=== PATIENT | female | born 1980 | race African-American/Black ===

== ENCOUNTER 2016-03-26 18:39 | Emergency (ER) | payer SELFPAY ==
[~2016-03-26] VITALS: Ht 160 cm; Wt 79.4 kg
[2016-03-26 19:40] VITALS: BP 140/90
[2016-03-26] MEDS ORDERED: HYDROCODONE/APAP 5/325MG TABLET. PO ONE (20:15)
[2016-03-26] MEDS ORDERED: CYCLOBENZAPRINE 10 MG TABLET. PO ONE (20:15)
[2016-03-26] MEDS ORDERED: CYCL10TA2 PO (20:25)
[2016-03-26] MEDS ORDERED: HYDR-971 PO (20:25)
--- NOTE | 2016-03-26 20:25 | PHYS DOC ---
Past Medical History Past Medical History: Hypertension, Seizure Additional Past Medical Histor: FX L3, HERNIATED DISCS Past Surgical History: No Surgical History, Alcohol Use: None Drug Use: None Adult General Chief Complaint Chief Complaint: LOWER EXT PAIN HPI HPI Patient is a 35 year old female with history of remote right low back pain who presents today with 8 out of 10 sharp right low back pain radiating into the right lower extremity that began 6 days ago. Patient is also complaining of some numbness and tingling to the right toes. Patient denies any injury. Denies any loss of bowel bladder function. Review of Systems Review of Systems Constitutional: Denies fever or chills [] Eyes: Denies change in visual acuity, redness, or eye pain [] GI: Denies abdominal pain, nausea, vomiting, bloody stools or diarrhea [] : Denies dysuria or hematuria [] Musculoskeletal: Right low back pain radiating to the right lower extremity Integument: Denies rash or skin lesions [] Neurologic: Denies headache, focal weakness or sensory changes [] Endocrine: Denies polyuria or polydipsia [] Current Medications Current Medications Current Medications Medications (Trade) Dose Ordered Sig/Venu Start Time Stop Time Status Last Admin Dose Admin Acetaminophen/ Hydrocodone Bitart (Lortab 5/325) 1 tab 1X ONCE 03/26/16 20:15 03/26/16 20:16 DC 03/26/16 20:15 1 TAB Cyclobenzaprine HCl (Flexeril) 10 mg 1X ONCE 03/26/16 20:15 03/26/16 20:16 DC 03/26/16 20:15 10 MG Allergies Allergies Allergies Coded Allergies Type Severity Reaction Last Updated Verified ibuprofen Allergy Intermediate RASH 07/31/14 Yes Physical Exam Physical Exam Constitutional: Well developed, well nourished, no acute distress, non-toxic appearance. [] Abdomen: Bowel sounds normal, soft, no tenderness, no masses, no pulsatile masses. [] Skin: Warm, dry, no erythema, no rash. [] Back: Diffuse tenderness to paraspinal muscles of the right lumbar region worse on the right SI joint, no midline tenderness, no CVA tenderness. Positive right leg straight raises. Extremities: No tenderness, no cyanosis, no clubbing, ROM intact, no edema. [] Neurologic: Alert and oriented X 3, normal motor function, normal sensory function, no focal deficits noted. [] Psychologic: Affect normal, judgement normal, mood normal. [] Current Patient Data Vital Signs Vital Signs Date Time Temp Pulse Resp B/P Pulse Ox O2 Delivery O2 Flow Rate FiO2 03/26/16 19:40 98.1 85 18 100 Room Air 98.1 EKG EKG [] Radiology/Procedures Radiology/Procedures [] Course & Med Decision Making Course & Med Decision Making Pertinent Labs and Imaging studies reviewed. (See chart for details) Patient is in the ED with sciatica pain. Discharged with Flexeril, and hydrocodone. Instructed to follow-up with her own PCP in one week. She is allergic to ibuprofen. She was provided return precautions and discharged in stable condition. Dragon Disclaimer Dragon Disclaimer This electronic medical record was generated, in whole or in part, using a voice recognition dictation system. Departure Departure Impression: Primary Impression: Chronic back pain Additional Impression: Sciatic nerve pain Disposition: HOME, SELF-CARE Condition: STABLE Referrals: NO PCP (PCP) Follow-up with your own doctor in a week Patient Instructions: Back Pain, Adult, Sciatica Additional Instructions: You were seen for sciatic pain, back pain. You can apply heat to your back. Follow-up with your own doctor in one week. Come back to the emergency room for concerning symptoms especially loss of bowel bladder function. Take the prescribed medicines as ordered. Scripts Hydrocodone/Apap 5-325 ([place] 5-325 Tablet)1 Each Tablet1-2 Tab PO Q4-6HRS #12 TAB Prov:PASHA DIGGS APRN 03/26/16 Cyclobenzaprine Hcl 10 Mg Tablet1 Tab PO TID #30 TAB Prov:PASHA DIGGS APRN 03/26/16 Problem Qualifiers Primary Impression: Chronic back pain Back pain location: low back pain Back pain laterality: right Sciatica presence: with sciatica Sciatica laterality: sciatica of right side Qualified Code: M54.41 - Lumbago with sciatica, right side Additional Impression: Sciatic nerve pain Laterality: right Qualified Code: M54.31 - Sciatica, right side PASHA DIGGS APRN Mar 26, 2016 20:25
== END 2016-03-26 20:28 | disposition home or self-care (01) ==
LOC: ER 18:39
DX: M54.41 Lumbago with sciatica, right side (principal); G89.29 Other chronic pain; I10 Essential (primary) hypertension; Z88.6 Allergy status to analgesic agent
CPT/HCPCS: 99283

== ENCOUNTER 2016-05-27 10:12 | Emergency (ER) | payer SELFPAY ==
[~2016-05-27] VITALS: Ht 160 cm; Wt 93.0 kg
[~2016-05-27 10:12] MED LIST: CYCL10TA2 PO; HYDR-971 PO
[2016-05-27 10:36] VITALS: BP 148/90
[2016-05-27 11:06] LABS: BILIRUBIN,URINE NEGATIVE (NEG); GLUCOSE,URINE NEGATIVE (NEG); NITRITE,URINE NEGATIVE (NEG); PROTEIN,URINE NEGATIVE (NEG-TRACE); UROBILINOGEN,URINE 0.2 mg/dL (0.2 mg/dL)
[2016-05-27 11:23] LABS: BACTERIA,URINE FEW /HPF (0-FEW); SQUAMOUS EPITHELIAL CELL,UR FEW /LPF
[2016-05-27] MEDS ORDERED: CEFTRIAXONE IM 250 MG VIAL. IM ONE (12:00)
[2016-05-27] MEDS ORDERED: AZITHROMYCIN 250 MG TABLET. PO ONE (12:00)
[2016-05-27] MEDS ORDERED: METRONIDAZOLE 500 MG TABLET. PO ONE (12:00)
--- NOTE | 2016-05-27 12:07 | PHYS DOC ---
Past Medical History Past Medical History: Hypertension, Seizure Additional Past Medical Histor: FX L3, HERNIATED DISCS Past Surgical History: No Surgical History, Additional Information: 1 ppd Alcohol Use: Occasionally Drug Use: None Adult General Chief Complaint Chief Complaint: PAIN ON URINATION HPI HPI Patient is a 36 year old female with history of hypertension and seizure disorder who presents today with dysuria urgency frequency that began 5 days ago. Patient denies any chance she is . Denies any hematuria. Denies any abdominal pain nausea or vomiting. Review of Systems Review of Systems Constitutional: Denies fever or chills [] Eyes: Denies change in visual acuity, redness, or eye pain [] HENT: Denies nasal congestion or sore throat [] Respiratory: Denies cough or shortness of breath [] Cardiovascular: No additional information not addressed in HPI [] GI: Denies abdominal pain, nausea, vomiting, bloody stools or diarrhea [] : Urgency frequency dysuria Musculoskeletal: Denies back pain or joint pain [] Integument: Denies rash or skin lesions [] Neurologic: Denies headache, focal weakness or sensory changes [] Endocrine: Denies polyuria or polydipsia [] Current Medications Current Medications Current Medications Medications (Trade) Dose Ordered Sig/Venu Start Time Stop Time Status Last Admin Dose Admin Azithromycin (Zithromax) 1,000 mg 1X ONCE 05/27/16 12:00 05/27/16 12:01 DC 05/27/16 12:02 1,000 MG Ceftriaxone Sodium (Rocephin Im) 250 mg 1X ONCE 05/27/16 12:00 05/27/16 12:01 DC 05/27/16 12:02 250 MG Metronidazole (Flagyl) 2,000 mg 1X ONCE 05/27/16 12:00 05/27/16 12:01 DC 05/27/16 12:02 2,000 MG Allergies Allergies Allergies Coded Allergies Type Severity Reaction Last Updated Verified Fish Containing Products Allergy Intermediate anaphylaxis 05/27/16 Yes ibuprofen Allergy Intermediate RASH 05/27/16 Yes shellfish derived Allergy Intermediate anaphylaxis 05/27/16 Yes Physical Exam Physical Exam Constitutional: Well developed, well nourished, no acute distress, non-toxic appearance. [] HENT: Normocephalic, atraumatic, bilateral external ears normal, oropharynx moist, no oral exudates, nose normal. [] Eyes: PERRLA, EOMI, conjunctiva normal, no discharge. [] Neck: Normal range of motion, no tenderness, supple, no stridor. [] Cardiovascular:Heart rate regular rhythm, no murmur [] Lungs & Thorax: Bilateral breath sounds clear to auscultation [] Abdomen: Bowel sounds normal, soft, no tenderness, no masses, no pulsatile masses. [] Skin: Warm, dry, no erythema, no rash. [] Back: No tenderness, no CVA tenderness. [] Extremities: No tenderness, no cyanosis, no clubbing, ROM intact, no edema. [] Neurologic: Alert and oriented X 3, normal motor function, normal sensory function, no focal deficits noted. [] Psychologic: Affect normal, judgement normal, mood normal. [] Current Patient Data Vital Signs Vital Signs Date Time Temp Pulse Resp B/P Pulse Ox O2 Delivery O2 Flow Rate FiO2 05/27/16 10:36 98.8 94 20 99 Room Air 98.8 Lab Values Laboratory Tests Test 05/27/16 10:25 Urine Collection Type Unknown Urine Color Yellow Urine Clarity Clear Urine pH 8.0 Urine Specific [place] 1.010 Urine Protein Negativemg/dL (NEG-TRACE) Urine Glucose (UA) Negativemg/dL (NEG) Urine Ketones (Stick) Negativemg/dL (NEG) Urine Blood Moderate (NEG) Urine Nitrite Negative (NEG) Urine Bilirubin Negative (NEG) Urine Urobilinogen Dipstick 0.2mg/dL (0.2 mg/dL) Urine Leukocyte Esterase Trace (NEG) Urine RBC 1-2/HPF (0-2) Urine WBC 1-4/HPF (0-4) Urine Squamous Epithelial Cells Few/LPF Urine Bacteria Few/HPF (0-FEW) EKG EKG [] Radiology/Procedures Radiology/Procedures [] Course & Med Decision Making Course & Med Decision Making Pertinent Labs and Imaging studies reviewed. (See chart for details) Patient is in the ED with complaints of dysuria urgency or frequency. Negative urine hCG, urine analysis has trace amount of leukocytes, and few bacteria. Gave patient results, she states she just got a text message from the boyfriend who stated he was treated for chlamydia, patient is requesting to be treated as well. Patient is given Flagyl Rocephin and azithromycin. Educated on safe sex practices. Discharged in stable condition. Dragon Disclaimer Dragon Disclaimer This electronic medical record was generated, in whole or in part, using a voice recognition dictation system. Departure Departure Impression: Primary Impression: Concern about STD in female without diagnosis Disposition: 01 HOME, SELF-CARE Condition: STABLE Referrals: NO PCP (PCP) Follow-up with the health department for further STD concerns Patient Instructions: Sexually Transmitted Diseases-SportsMed Additional Instructions: You were treated prophylaxis for STDs. Do not have sex for week, contact all your sex partners, let them know you were treated for STDs and ask them to seek treatment too. Use protection at all times. PASHA DIGGS APRN May 27, 2016 12:07
== END 2016-05-27 12:18 | disposition home or self-care (01) ==
LOC: ER 10:12
DX: Z20.2 Contact with and (suspected) exposure to infections with a predominantly sexual mode of transmission (principal); R30.0 Dysuria; R35.0 Frequency of micturition; R39.15 Urgency of urination; I10 Essential (primary) hypertension; F17.200 Nicotine dependence, unspecified, uncomplicated; Z98.890 Other specified postprocedural states; Z88.6 Allergy status to analgesic agent; Z91.013 Allergy to seafood
CPT/HCPCS: 81001; 84703; 87491; 87591; 96372; 99284; J0696; Q0144; 81025

== ENCOUNTER 2016-09-20 12:01 | Emergency (ER) | payer OTHER ==
[2016-09-20 12:32] LABS: BILIRUBIN,URINE NEGATIVE (NEG); GLUCOSE,URINE NEGATIVE (NEG); NITRITE,URINE NEGATIVE (NEG); PROTEIN,URINE NEGATIVE (NEG-TRACE); UROBILINOGEN,URINE 0.2 mg/dL (0.2 mg/dL)
[2016-09-20 12:41] LABS: BACTERIA,URINE MODERATE /HPF (0-FEW); RBC,URINE 20-40 /HPF (0-2)
[2016-09-20 12:42] LABS: SQUAMOUS EPITHELIAL CELL,UR MOD /LPF
[2016-09-20 12:48] LABS: BASO % 0 % (0-3); EOS % 1 % (0-3); HEMATOCRIT 38.5 % (36.0-47.0); HEMOGLOBIN 12.7 g/dL (12.0-15.5); LYMPH # 2.2 x10^3/uL (1.0-4.8); LYMPH % 27 % (24-48); MEAN CORPUSCULAR HEMOGLOBIN 27 pg (25-35); MEAN CORPUSCULAR HGB CONC 33 g/dL (31-37); MEAN CORPUSCULAR VOLUME 81 fL (79-100); MONO % 7 % (0-9); NEUT % 66 % (31-73); PLATELET COUNT 247 x10^3/uL (140-400); RED BLOOD COUNT 4.77 x10^6/uL (3.50-5.40); RED CELL DISTRIBUTION WIDTH 15.2 % (11.5-14.5); WHITE BLOOD COUNT 8.5 x10^3/uL (4.0-11.0)
--- NOTE | 2016-09-20 14:17 | RAD ---
OB ultrasound less than 14 weeks to include transabdominal and transvaginal imaging 09/20/2016 Clinical history: First trimester with vaginal bleeding. Technique: Using the distended urinary bladder as a sonographic window, real-time ultrasound examination of the pelvis was performed. Additionally in attempt to better evaluate the uterus and adnexa, a transvaginal ultrasound study was performed. Multiple images were obtained. Findings: The uterus is within normal limits in size and echogenicity. It measures 7.3 x 5.2 x 3.5 cm in longitudinal, transverse, and AP dimensions. The endometrial echo complex measures 2 mm in thickness which is within normal limits. No gestational sac is seen within the uterus. Both ovaries are within normal limits in size and echogenicity. The right ovary measures 3.3 x 1.8 x 2.1 cm in size. The left ovary measures 2.9 x 1.6 x 2.0 cm in size. Within the right adnexa, medial and inferior to the right ovary, a complex mass is seen which measures 4.0 x 3.1 x 2.6 cm in size. This has an anechoic structure within it which measures 2.8 cm in size. This could represent a gestational sac associated with ectopic within the right adnexa. No yolk sac or embryonic pole is seen to confirm this finding, however. No free fluid is seen. Impression: 1. No IUP is seen. 2. 4 cm complex mass is seen within the right adnexa concerning for an ectopic . Clinical correlation is recommended.
--- NOTE | 2016-09-20 14:22 | PHYS DOC ---
Past Medical History Past Medical History: Hypertension, Seizure, Other Additional Past Medical Histor: FX L3, HERNIATED DISCS Past Surgical History: Additional Information: quit 1 month ago Alcohol Use: Occasionally Drug Use: None Adult General Chief Complaint Chief Complaint: VAGINAL BLEEDING HPI HPI Patient is a 36 year old G3, P1, Ab1 female with estimated gestation 7 weeks patient and history of ectopic presents with spotting starting this morning. Last menstrual period was July 14, positive press C test was August 26. Patient denies pelvic pain, cramping, dizziness, lightheadedness, chest pain, shortness of breath palpitations. Patient denies spotting episode after intercourse. No vaginal discharge or pain. No other acute symptoms or complaints. Review of Systems Review of Systems Review of symptoms as per history of present illness. All other review symptoms are negative. Allergies Allergies Allergies Coded Allergies Type Severity Reaction Last Updated Verified Fish Containing Products Allergy Intermediate anaphylaxis 05/27/16 Yes ibuprofen Allergy Intermediate RASH 05/27/16 Yes shellfish derived Allergy Intermediate anaphylaxis 05/27/16 Yes Physical Exam Physical Exam Constitutional: Well developed, well nourished, no acute distress, non-toxic appearance. [] HENT: Normocephalic, atraumatic, bilateral external ears normal, oropharynx moist, no oral exudates, nose normal. [] Eyes: PERRLA, EOMI, conjunctiva normal, no discharge. [] Neck: Normal range of motion, no tenderness, supple, no stridor. [] Cardiovascular:Heart rate regular rhythm, no murmur [] Lungs & Thorax: Bilateral breath sounds clear to auscultation [] Abdomen: Bowel sounds normal, soft, no tenderness, no masses, no pulsatile masses. [] : Sternal genitalia normal, no vaginal lesions or lacerations, cervical os is closed with scant dark blood in vault. No TTP. Back: No tenderness, no CVA tenderness. [] Extremities: No tenderness, no cyanosis, no clubbing, ROM intact, no edema. [] Neurologic: Alert and oriented X 3, normal motor function, normal sensory function, no focal deficits noted. [] Psychologic: Affect normal, judgement normal, mood normal. [] Current Patient Data Vital Signs Vital Signs Date Time Temp Pulse Resp B/P (MAP) Pulse Ox O2 Delivery O2 Flow Rate FiO2 09/20/16 14:27 92 131/83 (99) 97 Room Air 09/20/16 12:21 98.5 16 98.5 Lab Values Laboratory Tests Test 09/20/16 11:21 09/20/16 12:10 09/20/16 12:30 POC Urine HCG, Qualitative Hcg positive (Negative) Urine Collection Type Void Urine Color Yellow Urine Clarity Cloudy Urine pH 6.0 Urine Specific [place] 1.020 Urine Protein Negative mg/dL (NEG-TRACE) Urine Glucose (UA) Negative mg/dL (NEG) Urine Ketones (Stick) Negative mg/dL (NEG) Urine Blood Large (NEG) Urine Nitrite Negative (NEG) Urine Bilirubin Negative (NEG) Urine Urobilinogen Dipstick 0.2 mg/dL (0.2 mg/dL) Urine Leukocyte Esterase Moderate (NEG) Urine RBC 20-40 /HPF (0-2) Urine WBC 1-4 /HPF (0-4) Urine Squamous Epithelial Cells Mod /LPF Urine Bacteria Moderate /HPF (0-FEW) Urine Mucus Slight /LPF White Blood Count 8.5 x10^3/uL (4.0-11.0) Red Blood Count 4.77 x10^6/uL (3.50-5.40) Hemoglobin 12.7 g/dL (12.0-15.5) Hematocrit 38.5 % (36.0-47.0) Mean Corpuscular Volume 81 fL (79-100) Mean Corpuscular Hemoglobin 27 pg (25-35) Mean Corpuscular Hemoglobin Concent 33 g/dL (31-37) Red Cell Distribution Width 15.2 % (11.5-14.5) H Platelet Count 247 x10^3/uL (140-400) Neutrophils (%) (Auto) 66 % (31-73) Lymphocytes (%) (Auto) 27 % (24-48) Monocytes (%) (Auto) 7 % (0-9) Eosinophils (%) (Auto) 1 % (0-3) Basophils (%) (Auto) 0 % (0-3) Neutrophils # (Auto) 5.6 x10^3uL (1.8-7.7) Lymphocytes # (Auto) 2.2 x10^3/uL (1.0-4.8) Monocytes # (Auto) 0.6 x10^3/uL (0.0-1.1) Eosinophils # (Auto) 0.1 x10^3/uL (0.0-0.7) Basophils # (Auto) 0.0 x10^3/uL (0.0-0.2) Maternal Serum HCG Beta Subunit 96 mIU/mL (0-5) H Laboratory Tests 09/20/16 12:30 EKG EKG [] Radiology/Procedures Radiology/Procedures [OB ultrasound less than 14 weeks: No IUP, 4 cm complex mass seen within the right adnexal concern for ectopic per radiology report.] Course & Med Decision Making Course & Med Decision Making Pertinent Labs and Imaging studies reviewed. (See chart for details) [Patients hCG Quant is 96. Suspect miscarriage versus ectopic versus early . OB ultrasound reveals no IUP with, and right complex adnexal mass with possible ectopic . No free fluid in cul-de-sac her pelvis is identified. Case reviewed with Dr. Rodriguez test automation architect for [facility] [facility]. Dr. Caldwell states he believes the complex mass may represent residual corpus luteal cyst or ectopic. Given that the patient does not have any pain and has only minimal bleeding in the emergency department he recommends that the patient be sent home with receipt hCG Quant testing in 2 days with follow-up ultrasound in [address] Caldwell to see in the office in 4 days. I discussed with patient at length the possibility of early, versus missed AB versus ectopic . Patient's very familiar with the diagnosis of ectopic as she has previously been treated for this condition. She understands evidence of medical emergency and that she developed increased pain , bleeding or other concerning symptoms she should return to the ED department immediately. She discharged in good condition.] Dragon Disclaimer Dragon Disclaimer This electronic medical record was generated, in whole or in part, using a voice recognition dictation system. Departure Departure Impression: Primary Impression: Vaginal bleeding during , antepartum Additional Impression: Ectopic Disposition: HOME, SELF-CARE Condition: Referrals: JULIO CALDWELL Jr, MD Patient Instructions: Ectopic , [id number], Vaginal Bleeding During , First Trimester Additional Instructions: You were evaluated for vaginal bleeding in early . Lab work and ultrasound were performed. Visible intrauterine was not identified. Your symptoms and doesn't sensation are consistent with early , possible miscarriage or possible ectopic . Please follow-up with Dr. Caldwell in the office in 4 days. Call his office on Thursday to schedule follow-up appointment in obtain repeat lab work prior to appointment. Elissa take platform to outpatient lab on Thursday or Thursday of next week. In the meantime, if you develop increased vaginal bleeding, pelvic pain, dizziness, chest pain or shortness of breath, return to the emergency department immediately reevaluation of possible ectopic . Problem Qualifiers ADDIE HARDY DO Sep 20, 2016 14:22
[2016-09-20 14:50] VITALS: BP 122/77
== END 2016-09-20 15:26 | disposition home or self-care (01) ==
LOC: ER 12:01
DX: O00.90 Unspecified ectopic pregnancy without intrauterine pregnancy (principal); O46.91 Antepartum hemorrhage, unspecified, first trimester; Z3A.01 Less than 8 weeks gestation of pregnancy; O16.1 Unspecified maternal hypertension, first trimester; Z87.891 Personal history of nicotine dependence; Z91.013 Allergy to seafood; Z88.8 Allergy status to other drugs, medicaments and biological substances
CPT/HCPCS: 36415; 76801; 76817; 81001; 81025; 84702; 85025; 86901; 87086; 99285-25

== ENCOUNTER 2016-10-12 10:51 | Emergency (ER) | payer OTHER ==
[~2016-10-12] VITALS: Ht 160 cm; Wt 90.7 kg
[2016-10-12] MEDS ORDERED: IV NORMAL SALINE 1000ML BAG 1,000 ML IV SCH (11:09)
[2016-10-12] MEDS ORDERED: diphenhydrAMINE 50 MG/ML VIAL IVP ONE (11:15)
[2016-10-12] MEDS ORDERED: methylPREDNISolone SOD SUCC PF 125 MG/2 ML VIAL. IV ONE (11:15)
[2016-10-12] MEDS ORDERED: 0.9 % SODIUM CHLORIDE 10 ML DISP.SYRIN. IV PRN (11:15)
[2016-10-12] MEDS ORDERED: FAMOTIDINE 20 MG/2 ML VIAL IVP ONE (11:15)
--- NOTE | 2016-10-12 11:27 | PHYS DOC ---
Past Medical History Past Medical History: Hypertension, Seizure, Other Additional Past Medical Histor: FX L3, HERNIATED DISCS Past Surgical History: Alcohol Use: Occasionally Drug Use: None Adult General Chief Complaint Chief Complaint: ABDOMINAL PAIN HPI HPI Patient is a pleasant 36 year old female at approximate 11 weeks by LMP as reported by her history. She presents with 2 to hours of suprapubic discomfort described as a crampy ache dull pressure without vaginal bleeding, UTI symptoms, nausea, vomiting or diarrhea. Patient denies any discharge from her vagina history of STDs or other trauma. 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 She denies any fevers, chills or other URI symptoms. Patient does admit she's had a slight rash on her upper extremities as been intensely for last 2 days. She denies any joint pain joint swelling. Review of Systems Review of Systems Constitutional: Denies fever or chills [] Eyes: Denies change in visual acuity, redness, or eye pain [] HENT: Denies nasal congestion or sore throat [] Respiratory: Denies cough or shortness of breath [] Cardiovascular: No additional information not addressed in HPI [] GI: abd pain, no n/v/d, non bloody : Denies dysuria or hematuria [] Musculoskeletal: Denies back pain or joint pain [] Integument: Does have an itchy skin rash on her upper extremity's bilaterally Neurologic: Denies headache, focal weakness or sensory changes [] Endocrine: Denies polyuria or polydipsia [] Current Medications Current Medications Current Medications Medications (Trade) Dose Ordered Sig/Venu Start Time Stop Time Status Last Admin Dose Admin Diphenhydramine HCl (Benadryl) 25 mg 1X ONCE 10/12/16 11:15 10/12/16 11:18 DC 10/12/16 11:46 25 MG Famotidine (Pepcid) 20 mg 1X ONCE 10/12/16 11:15 10/12/16 11:18 DC 10/12/16 11:43 20 MG Methylprednisolone Sodium Succinate (SOLU-Medrol 125MG VIAL) 125 mg 1X ONCE 10/12/16 11:15 10/12/16 11:18 DC 10/12/16 11:49 125 MG Sodium Chloride (Normal Saline Flush) 10 ml QSHIFT PRN 10/12/16 11:15 10/12/16 11:48 10 ML Allergies Allergies Allergies Coded Allergies Type Severity Reaction Last Updated Verified Fish Containing Products Allergy Intermediate anaphylaxis 05/27/16 Yes ibuprofen Allergy Intermediate RASH 05/27/16 Yes shellfish derived Allergy Intermediate anaphylaxis 05/27/16 Yes Physical Exam Physical Exam Vital signs reviewed within normal limits Constitutional: Well developed, well nourished, no acute distress, non-toxic appearance. [] HENT: Normocephalic, atraumatic, bilateral external ears normal, oropharynx moist, no oral exudates, nose normal. [] Cardiovascular:Heart rate regular rhythm, no murmur [] Lungs & Thorax: Bilateral breath sounds clear to auscultation [] Abdomen: Bowel sounds normal, soft, no masses, no pulsatile masses, mild suprapubic tenderness no guarding rebound or organomegaly[] Skin: Warm, dry, no erythema, no rash. [] Back: No tenderness, no CVA tenderness. [] Extremities: No tenderness, no cyanosis, no clubbing, ROM intact, no edema. [] Neurologic: Alert and oriented X 3, normal motor function, normal sensory function, no focal deficits noted. [] Psychologic: Affect normal, judgement normal, mood normal. [] Current Patient Data Vital Signs Vital Signs Date Time Temp Pulse Resp B/P (MAP) Pulse Ox O2 Delivery O2 Flow Rate FiO2 10/12/16 11:03 98.8 89 18 149/89 (109) 99 Room Air 98.8 Lab Values Laboratory Tests Test 10/12/16 10:10 10/12/16 10:54 10/12/16 11:50 POC Urine HCG, Qualitative Hcg positive (Negative) Urine Collection Type Void Urine Color Yellow Urine Clarity Hazy Urine pH 7.0 Urine Specific [place] 1.015 Urine Protein Negative mg/dL (NEG-TRACE) Urine Glucose (UA) Negative mg/dL (NEG) Urine Ketones (Stick) Negative mg/dL (NEG) Urine Blood Small (NEG) Urine Nitrite Negative (NEG) Urine Bilirubin Negative (NEG) Urine Urobilinogen Dipstick 0.2 mg/dL (0.2 mg/dL) Urine Leukocyte Esterase Negative (NEG) Urine RBC 1-2 /HPF (0-2) Urine WBC 1-4 /HPF (0-4) Urine Squamous Epithelial Cells Many /LPF Urine Bacteria Moderate /HPF (0-FEW) Urine Mucus Slight /LPF White Blood Count 10.6 x10^3/uL (4.0-11.0) Red Blood Count 4.69 x10^6/uL (3.50-5.40) Hemoglobin 12.4 g/dL (12.0-15.5) Hematocrit 37.5 % (36.0-47.0) Mean Corpuscular Volume 80 fL (79-100) Mean Corpuscular Hemoglobin 26 pg (25-35) Mean Corpuscular Hemoglobin Concent 33 g/dL (31-37) Red Cell Distribution Width 14.9 % (11.5-14.5) H Platelet Count 252 x10^3/uL (140-400) Neutrophils (%) (Auto) 74 % (31-73) H Lymphocytes (%) (Auto) 20 % (24-48) L Monocytes (%) (Auto) 5 % (0-9) Eosinophils (%) (Auto) 0 % (0-3) Basophils (%) (Auto) 1 % (0-3) Neutrophils # (Auto) 7.8 x10^3uL (1.8-7.7) H Lymphocytes # (Auto) 2.1 x10^3/uL (1.0-4.8) Monocytes # (Auto) 0.6 x10^3/uL (0.0-1.1) Eosinophils # (Auto) 0.0 x10^3/uL (0.0-0.7) Basophils # (Auto) 0.0 x10^3/uL (0.0-0.2) Maternal Serum HCG Beta Subunit 52 mIU/mL (0-5) H Sodium Level 139 mmol/L (136-145) Potassium Level 3.7 mmol/L (3.5-5.1) Chloride Level 103 mmol/L (98-107) Carbon Dioxide Level 28 mmol/L (21-32) Anion Gap 8 (6-14) Blood Urea Nitrogen 8 mg/dL (7-20) Creatinine 0.8 mg/dL (0.6-1.0) Estimated GFR (Cockcroft-Gault) 97.7 BUN/Creatinine Ratio 10 (6-20) Glucose Level 87 mg/dL (70-99) Calcium Level 8.8 mg/dL (8.5-10.1) Total Bilirubin 0.5 mg/dL (0.2-1.0) Aspartate Amino Transferase (AST) 16 U/L (15-37) Alanine Aminotransferase (ALT) 19 U/L (14-59) Alkaline Phosphatase 85 U/L (46-116) Total Protein 6.9 g/dL (6.4-8.2) Albumin 3.4 g/dL (3.4-5.0) Albumin/Globulin Ratio 1.0 (1.0-1.7) Lipase 62 U/L (73-393) L Laboratory Tests 10/12/16 11:50 Laboratory Tests 10/12/16 11:50 EKG EKG [] Radiology/Procedures Radiology/Procedures [] [facility] [address] [place] [address] IMAGING REPORT Signed PATIENT: RADHA YOON ACCOUNT: [id number] : 1980 LOCATION: ER AGE: 36 SEX: F EXAM STATUS: REG ER ORD. PHYSICIAN: YADIEL ALMEIDA MD REASON: pelvic pain PROCEDURE: OB <14 WKS W/TV Examination: Obstetrical ultrasound less than 14 weeks History: History of abdominal pain, cramping, ectopic Comparison: 09/20/2016. Findings: The uterus measures 7.8 x 5.0 x 3.3 cm Simple appearing fluid identified in the cul-de-sac. The right ovary measures 2.8 x 2.6 x 2.1 cm. The left ovary measures 4.4 x 3.7 x 3.2 cm. There is a cystic structure identified in the left ovary measuring 3.3 x 3.5 x 3.1 cm. Intrauterine gestational sac is not identified. In the right adnexa , there is a complex appearing mass identified measuring 2.9 x 3.3 x 3.1 cm with central anechoic structure. This may represent a gestational sac without yolk sac or pole within. The camilo of the central cystic structure appear more collapsed compared to prior exam. Impression: 1. No intrauterine gestation is identified. 2. There is a 3.3 cm complex cystic structure identified in the right adnexa concerning for ectopic without obvious pole or yolk sac within. The camilo of the central cystic structure appear more collapsed compared to prior exam. Correlate with quantitative beta-hCG levels. 3. Small free fluid identified in the cul-de-sac. 4. 3.5 cm cystic structure identified in the left ovary likely a cyst. DICTATED and SIGNED BY: DWAIN NICHOLS MD DATE: 10/12/16 1246 CC: YADIEL ALMEIDA MD; NO PCP ~ Course & Med Decision Making Course & Med Decision Making Pertinent Labs and Imaging studies reviewed. (See chart for details) she labs are all within normal limits to include a beta hCG Quant 52 depending on what ultrasound looks like this could still be an ectopic . Patient tells me that their symptoms given during CC are improved. We reviewed labs at this point waiting or some results. A she is initial Quant from July 21, 2016 was 96 today her Quant is 54. Luis on the ultrasound findings this is very concerning for possible ectopic that is involuting and needs to be removed. [] Core Sucker note: An SUPERVISOR [employer] on service Dr. Plummer approximate 1 PM Core Sucker called at of the service 1:02 PM Consult called back at Discussed the case I presented and they agreed with admission. Time of acceptance 1:02 PM. Patient will be kept nothing by mouth provided fluids antiemetics we will type and screen this patient for possible need of blood increases ectopic ruptures in the OR. We informed of this finding and the plan to admit her to the hospital for definitive treatment of this particular ectopic . Dr. PLUMMER called back about 110 PM and related her ultra sound results that she could possibly be a candidate for methotrexate. He was willing to come in and talked about possible treatment options. Time is now 1:[address] krueger physician is at the bedside by 1:20 PM he discussed with the patient the treatment for methotrexate and reasons to do so. Patient is clinical presentation and his x-ray with methotrexate given her ectopic on ultrasound he believes she is improving candidate. We dosed 50 mg/ mcg squared of methotrexate ordered IM with a follow-up in 4 days in his office for repeat quantitative hCG and repeat again on day 7. Patient will be given pain medications bleeding precautions and antiemetics. And follow-up as appropriate. Dragon Disclaimer Dragon Disclaimer This electronic medical record was generated, in whole or in part, using a voice recognition dictation system. Departure Departure Impression: Primary Impression: Ectopic Additional Impression: Abdominal pain affecting Disposition: 01 HOME, SELF-CARE Condition: IMPROVED Referrals: NO PCP (PCP) ELLYN PLUMMER MD Patient Instructions: Abdominal Pain During , Threatened Miscarriage Additional Instructions: My discharge plan Please follow-up with Dr. PLUMMER as scheduled in 4 days in his office. Based on the fact that he wore on a medication that can cause increased bleeding and pain please return for any increasing pain or bleeding greater than 1 pad per hour for 8 hours or if you have any lightheaded or dizziness with symptoms. Also return immediately. Bowel pain increases with abdominal distention. Follow up: In addition patient is asked to followup with their primary doctor, within a week for followup examination and to address patient's ongoing medical conditions. Because patient does not have a regular medical doctor, a local physician Resource Sheet will be provided to establish care primary care. Patient is advised that in the Emergency Department primary complaints are addressed and only in light of known signs and symptoms. Patient should return immediately to the emergency department if new signs and symptoms develop or patient's condition worsens in any way. At time of discharge patient was in stable condition and had verbalized understanding of the discharge instructions. Scripts Ondansetron (ZOFRAN ODT) 4 Mg Tab.rapdis 4 MG PO BID Y for NAUSEA/VOMITING for 10 Days, #20 TAB Prov: YADIEL ALMEIDA MD 10/12/16 Hydrocodone Bit/Acetaminophen (HYDROCODONE-APAP 5-325 ) 1 Each Tablet 1-2 TAB PO PRN Q6HRS Y for PAIN for 5 Days, #10 TAB 0 Refills Prov: YADIEL ALMEIDA MD 10/12/16 Problem Qualifiers YADIEL ALMEIDA MD Oct 12, 2016 11:27
[2016-10-12 11:37] LABS: BILIRUBIN,URINE NEGATIVE (NEG); GLUCOSE,URINE NEGATIVE (NEG); NITRITE,URINE NEGATIVE (NEG); PROTEIN,URINE NEGATIVE (NEG-TRACE); UROBILINOGEN,URINE 0.2 mg/dL (0.2 mg/dL)
[2016-10-12 11:44] LABS: SQUAMOUS EPITHELIAL CELL,UR MANY /LPF
[2016-10-12 11:45] LABS: BACTERIA,URINE MODERATE /HPF (0-FEW)
[2016-10-12 12:00] LABS: BASO % 1 % (0-3); EOS % 0 % (0-3); HEMATOCRIT 37.5 % (36.0-47.0); HEMOGLOBIN 12.4 g/dL (12.0-15.5); LYMPH # 2.1 x10^3/uL (1.0-4.8); LYMPH % 20 % (24-48); MEAN CORPUSCULAR HEMOGLOBIN 26 pg (25-35); MEAN CORPUSCULAR HGB CONC 33 g/dL (31-37); MEAN CORPUSCULAR VOLUME 80 fL (79-100); MONO % 5 % (0-9); NEUT % 74 % (31-73); PLATELET COUNT 252 x10^3/uL (140-400); RED BLOOD COUNT 4.69 x10^6/uL (3.50-5.40); RED CELL DISTRIBUTION WIDTH 14.9 % (11.5-14.5); WHITE BLOOD COUNT 10.6 x10^3/uL (4.0-11.0)
[2016-10-12 12:12] LABS: CALCIUM 8.8 mg/dL (8.5-10.1); CREATININE 0.8 mg/dL (0.6-1.0); GFR 97.7; POTASSIUM 3.7 mmol/L (3.5-5.1)
[2016-10-12 12:17] LABS: ALBUMIN 3.4 g/dL (3.4-5.0); TOTAL BILIRUBIN 0.5 mg/dL (0.2-1.0); TOTAL PROTEIN 6.9 g/dL (6.4-8.2)
--- NOTE | 2016-10-12 12:59 | RAD ---
Examination: Obstetrical ultrasound less than 14 weeks History: History of abdominal pain, cramping, ectopic Comparison: 09/20/2016. Findings: The uterus measures 7.8 x 5.0 x 3.3 cm Simple appearing fluid identified in the cul-de-sac. The right ovary measures 2.8 x 2.6 x 2.1 cm. The left ovary measures 4.4 x 3.7 x 3.2 cm. There is a cystic structure identified in the left ovary measuring 3.3 x 3.5 x 3.1 cm. Intrauterine gestational sac is not identified. In the right adnexa , there is a complex appearing mass identified measuring 2.9 x 3.3 x 3.1 cm with central anechoic structure. This may represent a gestational sac without yolk sac or pole within. The camilo of the central cystic structure appear more collapsed compared to prior exam. Impression: 1. No intrauterine gestation is identified. 2. There is a 3.3 cm complex cystic structure identified in the right adnexa concerning for ectopic without obvious pole or yolk sac within. The camilo of the central cystic structure appear more collapsed compared to prior exam. Correlate with quantitative beta-hCG levels. 3. Small free fluid identified in the cul-de-sac. 4. 3.5 cm cystic structure identified in the left ovary likely a cyst.
[2016-10-12] MEDS ORDERED: METHOTREXATE SODIUM 50 MG/2 ML VIAL IM ONE (13:30)
[2016-10-12] MEDS ORDERED: HYDR-2758 PO (13:35)
[2016-10-12] MEDS ORDERED: ONDA4TAB10 PO (13:35)
[2016-10-12 14:25] VITALS: BP 118/82
== END 2016-10-12 14:30 | disposition home or self-care (01) ==
LOC: ER 10:51
DX: O00.90 Unspecified ectopic pregnancy without intrauterine pregnancy (principal); O26.891 Other specified pregnancy related conditions, first trimester; R10.30 Lower abdominal pain, unspecified; R21 Rash and other nonspecific skin eruption; O16.1 Unspecified maternal hypertension, first trimester; Z3A.11 11 weeks gestation of pregnancy; Z88.6 Allergy status to analgesic agent; Z91.013 Allergy to seafood
CPT/HCPCS: 36415; 76801; 76817; 80053; 81001; 81025; 83690; 84702; 85025; 87086; 96361; 96372; 96374; 96375; 99285; J1200; J2930; J7030; S0028

== ENCOUNTER 2017-01-19 09:22 | Emergency (ER) | payer OTHER ==
[~2017-01-19] VITALS: Ht 160 cm; Wt 90.7 kg
[~2017-01-19 09:22] MED LIST changes: +HYDR-2758 PO; +ONDA4TAB10 PO
[2017-01-19 09:35] VITALS: BP 141/101
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
[2017-01-19] MEDS ORDERED: HYDROcodone/APAP 5/325MG 1 TAB TABLET PO ONE (10:15)
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
== END 2017-01-19 11:19 | disposition home or self-care (01) ==
LOC: ER 09:22
DX: S06.0X0A Concussion without loss of consciousness, initial encounter (principal); I10 Essential (primary) hypertension; H53.2 Diplopia; Z88.6 Allergy status to analgesic agent; Z91.013 Allergy to seafood; Y08.89XA Assault by other specified means, initial encounter; Y93.89 Activity, other specified; Y99.8 Other external cause status; Y92.89 Other specified places as the place of occurrence of the external cause
CPT/HCPCS: 70450; 72125; 99284-25

== ENCOUNTER 2019-01-07 16:47 | Emergency (ER) | payer OTHER ==
[~2019-01-07] VITALS: Ht 160 cm; Wt 93.0 kg
[~2019-01-07 16:47] MED LIST changes: -HYDR-2758 PO; +HYDR-2761 PO; +HYDR-3164 PO; -HYDR-971 PO
[2019-01-07 17:39] VITALS: BP 126/76
[2019-01-07] MEDS ORDERED: DIPH25CA58 PO (18:39)
[2019-01-07] MEDS ORDERED: PRED20TA PO (18:39)
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
[2019-01-07] MEDS ORDERED: diphenhydrAMINE HCL 25 MG CAPSULE PO ONE (18:45)
[2019-01-07] MEDS ORDERED: DEXAMETHASONE 4 MG TABLET PO ONE (18:45)
== END 2019-01-07 18:42 | disposition home or self-care (01) ==
LOC: ER 16:47
DX: O99.711 Diseases of the skin and subcutaneous tissue complicating pregnancy, first trimester (principal); L50.9 Urticaria, unspecified; O16.1 Unspecified maternal hypertension, first trimester; O99.331 Smoking (tobacco) complicating pregnancy, first trimester; Z3A.08 8 weeks gestation of pregnancy; Z91.013 Allergy to seafood; Z88.6 Allergy status to analgesic agent; Z88.8 Allergy status to other drugs, medicaments and biological substances
CPT/HCPCS: 99283; J8540; Q0163

== ENCOUNTER 2019-10-28 08:37 | Emergency (ER) | payer OTHER ==
[~2019-10-28] VITALS: Ht 160 cm; Wt 88.0 kg
[~2019-10-28 08:37] MED LIST changes: +DIPH25CA58 PO; +PRED20TA PO
[2019-10-28 08:52] VITALS: BP 129/85
[2019-10-28] MEDS ORDERED: FEXO60TA25 PO (08:53)
[2019-10-28] MEDS ORDERED: PEG15DRO4 EACHEYE (08:53)
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
== END 2019-10-28 09:18 | disposition home or self-care (01) ==
LOC: ER 08:37
DX: H02.846 Edema of left eye, unspecified eyelid (principal); H02.843 Edema of right eye, unspecified eyelid; I10 Essential (primary) hypertension; F17.200 Nicotine dependence, unspecified, uncomplicated; Z91.013 Allergy to seafood; Z88.6 Allergy status to analgesic agent; Z88.8 Allergy status to other drugs, medicaments and biological substances
CPT/HCPCS: 99283